=== PATIENT | male | born 1990 | race Caucasian/White ===

== ENCOUNTER 2016-12-08 03:45 | Emergency (ER) | payer OTHER ==
[~2016-12-08] VITALS: Ht 167.6 cm; Wt 81.8 kg
[~2016-12-08 03:45] MED LIST: ALBU8HFA IH
[2016-12-08] MEDS ORDERED: PredniSONE 20 MG TABLET PO ONE (04:00)
[2016-12-08] MEDS ORDERED: ALBUTEROL SULFATE 5 MG/ML 20 ML NEB SOLN [BULK] NEB ONE (04:00)
[2016-12-08] MEDS ORDERED: IPRATROPIUM BROMIDE 0.5 MG/2.5 ML NEB SOLUTION NEB ONE (04:00)
[2016-12-08] MEDS ORDERED: 0.9% SODIUM CHLORIDE 5 ML NEB SOLUTION NEB ONE (04:11)
[2016-12-08 04:48] VITALS: BP 103/74
== END 2016-12-08 05:43 | disposition home or self-care (01) ==
LOC: EMS 03:46
DX: J45.901 Unspecified asthma with (acute) exacerbation (principal)
CPT/HCPCS: 94644; 99285; J7512; J7611